=== PATIENT | female | born 1950 | race Caucasian/White ===

== ENCOUNTER → 2017-11-26 | Emergency (ER) | payer OTHER ==
[~2017-11-26] VITALS: Ht 160 cm; Wt 108.9 kg
[~2017-11-26] MED LIST: HYDROcodone/ACETAMIN 5-325 MG TAB (NORCO/ VICODIN) PO ONE; IBUPROFEN 800 MG TABLET PO ONE
[2017-11-26 15:18] VITALS: BP_SYST 140
--- NOTE | 2017-11-26 15:23 | NUR ---
Patient to ER bed 8 to gown for evaluation. Side rails up. Report given to Manny PATRICK.
--- NOTE | 2017-11-26 15:25 | NUR ---
Patient to ER via triage with c/o facial pain after having a non-syncopal, mechanical fall while at work. NO LOC, neck or back pain reported. Patient able to ambulate to bed 8, to await MD evaluation. Patient able to ambulate with slow, steady gait without difficulty. Patient able to move all extremities without difficulty. Patient sitting in position of comfort on gurney, with female visitor at bedside. Awaiting evaluation by ER MD, will continue to observe and assess.
--- NOTE | 2017-11-26 15:30 | NUR ---
Dr Malik at bedside to evaluate patient.
--- NOTE | 2017-11-26 15:40 | NUR ---
Patient to CT scan via gurney in stable condition.
--- NOTE | 2017-11-26 15:55 | NUR ---
Patient back from CT scan in stable condition via gurney. Female visitor remains at bedside, awaiting CT results and dispo.
--- NOTE | 2017-11-26 16:30 | NUR ---
Patient resting quietly in no acute distress. Female visitor remains at bedside, awaiting dispo-will continue to observe and assess.
[2017-11-26 17:22] VITALS: BP_SYST 123
--- NOTE | 2017-11-26 17:22 | NUR ---
Patient given written and verbal discharge instructions and verbalizes understanding. ER MD Malik discussed with patient the results and treatment provided. Patient in stable condition. ID arm band removed. Rx of Colby, Motrin given. Patient educated on pain management and to follow up with PMD. Pain Scale 0. Opportunity for questions provided and answered.
== END | disposition still patient (30) ==
LOC: SED 15:02
DX: S13.4XXA Sprain of ligaments of cervical spine, initial encounter (principal); S09.8XXA Other specified injuries of head, initial encounter; R07.89 Other chest pain; W01.0XXA Fall on same level from slipping, tripping and stumbling without subsequent striking against object, initial encounter; Y93.89 Activity, other specified; Y92.89 Other specified places as the place of occurrence of the external cause; Y99.8 Other external cause status
CPT/HCPCS: 70450-TC; 70480; 71045; 72125-TC; 93005; 99284